=== PATIENT | male | born 1990 | race Hispanic/Latino ===

== ENCOUNTER 2021-06-08 11:18 | Emergency (ER) | payer OTHER ==
[~2021-06-08] VITALS: Ht 172.7 cm; Wt 79.4 kg
[2021-06-08] MEDS ORDERED: CEPHALEXIN 500 MG CAPSULE ONE (12:05)
[2021-06-08] MEDS ORDERED: CEPH500B PO (12:06)
[2021-06-08] MEDS ORDERED: MUPI22O TP (12:06)
[2021-06-08] MEDS ORDERED: CEPHALEXIN 500 MG CAPSULE PO ONE (12:30)
== END 2021-06-08 12:12 | disposition home or self-care (01) ==
LOC: EDH 11:27
DX: L01.00 Impetigo, unspecified (principal); Z79.899 Other long term (current) drug therapy

== ENCOUNTER 2021-08-04 11:32 | Emergency (ER) | payer OTHER ==
[~2021-08-04] VITALS: Ht 172.7 cm; Wt 77.1 kg
[~2021-08-04 11:32] MED LIST: CEPH500B PO; MUPI22O TP
[2021-08-04] MEDS ORDERED: MUPI22O TP (12:31)
[2021-08-04] MEDS ORDERED: HC0.215O TP (12:31)
[2021-08-04 13:26] VITALS: BP 127/88
== END 2021-08-04 13:40 | disposition home or self-care (01) ==
LOC: EDH 11:32
DX: L01.00 Impetigo, unspecified (principal); L40.0 Psoriasis vulgaris; Z79.899 Other long term (current) drug therapy

== ENCOUNTER → 2023-02-25 | Emergency (ER) | payer OTHER ==
[~2023-02-25] VITALS: Ht 172.7 cm; Wt 79.4 kg
[~2023-02-25] MED LIST changes: +0.9%NACL 1000ML 1,000 ML IV ONE; +HC0.215O TP; +ONDANSETRON 4MG TABLET PO ONE
[2023-02-25 13:46] VITALS: BP 146/102
[2023-02-25 14:41] LABS: BASOPHILS % (AUTO) 0.8 % (0.0-5.0); EOSINOPHILS % (AUTO) 0.5 % (0.0-8.0); HEMATOCRIT 46.6 % (42-54); LYMPHOCYTES % (AUTO) 13.7 % (21.0-51.0); MEAN CORPUSCULAR HEMOGLOBIN 32.8 pg (27.0-33.0); MEAN CORPUSCULAR HGB CONC 33.9 g/dL (32.0-36.0); MEAN CORPUSCULAR VOLUME 96.7 fL (79-99); MONOCYTES % (AUTO) 9.6 % (3.0-13.0); NEUTROPHILS % (AUTO) 74.9 % (40.0-77.0); PLATELET COUNT (AUTO) 294 K/uL (130-400); RED BLOOD CELL COUNT(AUTO) 4.82 MIL/uL (4.50-6.20); RED CELL DISTRIBUTION WIDTH 12.2 % (11.0-15.5); WHITE BLOOD COUNT (AUTO) 7.4 K/uL (4.8-10.8)
[2023-02-25 14:50] LABS: POTASSIUM 3.8 mmol/L (3.5-5.1)
[2023-02-25 14:54] LABS: ALBUMIN 4.7 g/dL (3.5-5.0); TOTAL PROTEIN, SERUM 8.3 g/dL (6.0-8.3)
== END ==
LOC: EDH 12:46
DX: R11.2 Nausea with vomiting, unspecified (principal); R19.7 Diarrhea, unspecified; Z79.899 Other long term (current) drug therapy; Z98.890 Other specified postprocedural states
CPT/HCPCS: 36415; 80053; 84484; 85025; 93005